=== PATIENT | male | born 1995 | race Caucasian/White ===

== ENCOUNTER 2017-05-25 18:19 | Emergency (ER) | payer OTHER, BC ==
[~2017-05-25] VITALS: Ht 180.3 cm; Wt 109.7 kg
[~2017-05-25 18:19] MED LIST: ASPIRIN81 M2 PO; BENTYL10 MG PO; CIPRO500 MG PO; FLAGYL500 MG PO; FLEXERIL10 MG PO; IBUPROFEN800 MG PO; MOBIC7.5 MG PO; MOTRIN800 MG PO; NAPROSYN500 MG PO; NAPROXEN500 MG PO; NO HOME MEDS; PREDNISONE20 MG PO; ROXICODONE5 MG PO; VALIUM2 MG PO; VALIUM5 MG PO; ZANTAC150 MG PO
[2017-05-25] MEDS ORDERED: FLEXERIL10 MG PO (20:32)
[2017-05-25] MEDS ORDERED: MOTRIN800 MG PO (20:32)
[2017-05-25 20:41] VITALS: BP 135/85
== END 2017-05-25 20:42 | disposition home or self-care (01) ==
LOC: EME 18:19
DX: S16.1XXA Strain of muscle, fascia and tendon at neck level, initial encounter (principal); S29.012A Strain of muscle and tendon of back wall of thorax, initial encounter; S93.402A Sprain of unspecified ligament of left ankle, initial encounter; V49.40XA Driver injured in collision with unspecified motor vehicles in traffic accident, initial encounter; Z87.891 Personal history of nicotine dependence; Z88.5 Allergy status to narcotic agent
CPT/HCPCS: 72040; 72070; 73610; 99281; 99283

== ENCOUNTER 2018-01-19 08:24 | Emergency (ER) | payer BC ==
[~2018-01-19] VITALS: Ht 180.3 cm; Wt 111.9 kg
[2018-01-19 09:17] LABS: BASOPHIL (%) 0.4 % (0-1); EOSINOPHIL (%) 1.5 % (0-5); EOSINOPHIL COUNT 0.1 K/uL (0-0.3); HEMATOCRIT 44.3 % (38.0-50.0); HEMOGLOBIN 15.6 G/DL (12.5-16.6); LYMPHOCYTE (%) 24.7 % (15-42); LYMPHOCYTE COUNT 1.7 K/uL (1.0-2.8); MCH 30.4 PG (29.0-34.0); MCHC 35.2 G/DL (30.0-36.0); MCV 86.4 FL (86-99); MONOCYTE (%) 10.6 % (3-12); MONOCYTE COUNT 0.7 K/uL (0-0.8); NEUTROPHIL (%) 61.8 % (45-76); NEUTROPHIL COUNT 4.2 K/uL (1.8-6.4); PLATELET COUNT 201 K/uL (156-360); RBC DIS.WIDTH-CV 11.9 % (11.8-14.6); RBC DIS.WIDTH-SD 37.3 % (39-53); RED BLOOD COUNT 5.13 M/uL (4.00-5.50); WHITE BLOOD COUNT 6.8 K/uL (4.1-10.2)
[2018-01-19 09:25] LABS: CHLORIDE 103 mEq/L (99-109); POTASSIUM 3.8 mEq/L (3.7-5.4)
[2018-01-19 09:26] LABS: INTER. NORMALIZED RATIO 1.1; SODIUM 137 mEq/L (136-147)
[2018-01-19 09:27] LABS: GLUCOSE 92 mg/dL (70-99)
[2018-01-19 09:29] LABS: PTT 27.7 SEC (25-37)
[2018-01-19 09:31] LABS: CREATININE 0.9 mg/dL (0.6-1.3); GFR ESTIMATE (CALCULATED) > 59 mL/min/ (58.99-99999)
[2018-01-19 09:32] LABS: UREA NITROGEN (BUN) 17 mg/dL (9-23)
[2018-01-19 11:14] VITALS: BP 129/88
== END 2018-01-19 11:17 | disposition home or self-care (01) ==
LOC: EME 08:24
PROVIDERS: Emergency Medicine
DX: K62.5 Hemorrhage of anus and rectum (principal); R42 Dizziness and giddiness; Z87.891 Personal history of nicotine dependence
CPT/HCPCS: 80048; 85025; 85610; 85730; 99281; 99285